=== PATIENT | female | born 1945 | race Caucasian/White ===

== ENCOUNTER 2016-06-18 09:59 | Inpatient (IN) | payer MEDICARE, OTHER ==
[2016-06-18] MEDS ORDERED: CALCIUM 600 +1 EA10 PO (10:54)
[2016-06-18] MEDS ORDERED: IRON325 M3 (10:55)
[2016-06-18] MEDS ORDERED: XANAX0.5 M1 PO (11:44)
[2016-06-18] MEDS ORDERED: METHSCOPOLAMIN2.5 M1 PO (11:44)
[2016-06-18] MEDS ORDERED: DEPAKOTE ER250 M1 PO (11:44)
[2016-06-18] MEDS ORDERED: GLUCOPHAGE850 M1 PO (11:45)
[2016-06-18] MEDS ORDERED: TOPROL XL50 M1 PO (11:45)
[2016-06-18] MEDS ORDERED: SYNTHROID125 MC1 PO (11:45)
[2016-06-18] MEDS ORDERED: ZOCOR20 M1 PO (11:45)
[2016-06-18] MEDS ORDERED: CYMBALTA20 M1 PO (11:46)
[2016-06-18] MEDS ORDERED: NORVASC5 M2 PO (11:46)
[2016-06-18] MEDS ORDERED: COZAAR100 M1 PO (11:46)
[2016-06-18] MEDS ORDERED: PEPCID20 M1 PO (11:47)
[2016-06-18 14:33] LABS: BASO % 0.1 % (0-2); HCT-HEMATOCRIT 36.9 % (34.0-49.0); HGB-HEMOGLOBIN 12.5 gm/dl (12.0-15.5); IMMATURE GRANULOCYTES ABSOLUTE 0.09 tho/cmm (0-0.03); IMMATURE GRANULOCYTES PERCENT 0.4 % (0-0.3); LYMPH % 5.2 % (20-45); LYMPH ABSOLUTE COUNT 1.1 tho/cmm (0.8-4.5); MCH (MEAN CORPUSCULAR HGB) 29.8 pg (28.0-32.0); MCHC MEAN CORPUSCULAR HGB CONC 33.9 % (32.0-36.0); MCV (MEAN CELL VOLUME) 87.9 fl (82.0-96.0); MEAN PLATELET VOLUME 10.1 cmc (9.4-12.4); MONO % 13.6 % (0-12); MONOCYTE ABSOLUTE COUNT 2.9 tho/cmm (0.0-1.2); NEUTROPHIL ABSOLUTE COUNT 17.3 tho/cmm (1.6-8.0); NEUTROPHIL-AUTOMATED 17.3 tho/cmm (1.6-8.0); NEUTROPHILS % 80.7 % (40-80); PLATELET COUNT 359 tho/cmm (150-450); WHITE BLOOD COUNT 21.4 tho/cmm (4.0-10.0)
[2016-06-18 15:26] LABS: PROCALCITONIN 24.53 ng/ml (0.05-0.09)
[2016-06-18 15:40] LABS: ALB/GLOB RATIO 0.5 (0.8-2.0); ALBUMIN 2.6 g/dl (3.5-5.0); ALKALINE PHOSPHATASE 155 U/L (33-138); ALT/SGPT 35 U/L (12-78); AMYLASE 12 U/L (20-90); ANION GAP 14 mmol/L (0-20); AST/SGOT 34 U/L (10-40); BILIRUBIN,TOTAL 1.1 mg/dl (0-1.5); BLOOD UREA NITROGEN 30 mg/dl (6-24); CALCIUM 9.1 mg/dl (8.5-10.5); CARBON DIOXIDE-VENOUS 28 mmol/L (22-32); CHLORIDE 97 mmol/l (96-110); CREATININE 2.72 mg/dl (0.50-1.10); GLUCOSE 133 mg/dL (70-110); LIPASE 45 U/L (73-393); POTASSIUM 4.3 mmol/L (3.7-5.1); SODIUM 135 mmol/L (135-145); eGFR VALUE FOR BLACK 20 mL/Min
[2016-06-18 15:44] LABS: TSH-THYROID STIMULATING HORM. 2.63 uIU/ml (0.40-3.80)
[2016-06-18 22:59] LABS: BASO % 0.1 % (0-2); HCT-HEMATOCRIT 31.6 % (34.0-49.0); HGB-HEMOGLOBIN 10.4 gm/dl (12.0-15.5); IMMATURE GRANULOCYTES ABSOLUTE 0.18 tho/cmm (0-0.03); LYMPH % 4.6 % (20-45); LYMPH ABSOLUTE COUNT 0.9 tho/cmm (0.8-4.5); MCH (MEAN CORPUSCULAR HGB) 29.4 pg (28.0-32.0); MCHC MEAN CORPUSCULAR HGB CONC 32.9 % (32.0-36.0); MCV (MEAN CELL VOLUME) 89.3 fl (82.0-96.0); MEAN PLATELET VOLUME 9.8 cmc (9.4-12.4); MONOCYTE ABSOLUTE COUNT 2.6 tho/cmm (0.0-1.2); NEUTROPHIL ABSOLUTE COUNT 15.2 tho/cmm (1.6-8.0); NEUTROPHIL-AUTOMATED 15.2 tho/cmm (1.6-8.0); NEUTROPHILS % 80.3 % (40-80); PLATELET COUNT 344 tho/cmm (150-450); RED BLOOD COUNT 3.54 mil/cmm (4.00-5.20); RED CELL DISTRIBUTION WIDTH 14.2 % (12.4-16.4); WHITE BLOOD COUNT 18.9 tho/cmm (4.0-10.0)
[2016-06-18 23:09] LABS: ANION GAP 15 mmol/L (0-20); BLOOD UREA NITROGEN 36 mg/dl (6-24); CALCIUM 8.4 mg/dl (8.5-10.5); CARBON DIOXIDE-VENOUS 25 mmol/L (22-32); CHLORIDE 99 mmol/l (96-110); CREATININE 3.13 mg/dl (0.50-1.10); GLUCOSE 185 mg/dL (70-110); MAGNESIUM 1.2 mg/dl (1.3-2.6); SODIUM 135 mmol/L (135-145); eGFR VALUE FOR BLACK 17 mL/Min
[2016-06-19 03:31] LABS: ABG CO2 ARTERIAL 21 mmol/L (21-27); ARTERIAL BLD GAS O2 SATURATION 90 % (95-98); ARTERIAL BLOOD GAS PCO2 28 mmHg (32-45); ARTERIAL PO2 57 mmHg (70-100); BICARBONATE 20 mmol/L (21-28); BLOOD GAS BASE EXCESS -3 mM/L (-/+3); PH 7.46 Units (7.35-7.45)
[2016-06-19 03:45] LABS: BASO % 0.1 % (0-2); HCT-HEMATOCRIT 30.7 % (34.0-49.0); HGB-HEMOGLOBIN 10.2 gm/dl (12.0-15.5); IMMATURE GRANULOCYTES ABSOLUTE 0.15 tho/cmm (0-0.03); IMMATURE GRANULOCYTES PERCENT 0.9 % (0-0.3); LYMPH % 5.6 % (20-45); LYMPH ABSOLUTE COUNT 0.9 tho/cmm (0.8-4.5); MCH (MEAN CORPUSCULAR HGB) 29.3 pg (28.0-32.0); MCHC MEAN CORPUSCULAR HGB CONC 33.2 % (32.0-36.0); MCV (MEAN CELL VOLUME) 88.2 fl (82.0-96.0); MEAN PLATELET VOLUME 10.2 cmc (9.4-12.4); MONO % 11.7 % (0-12); MONOCYTE ABSOLUTE COUNT 1.9 tho/cmm (0.0-1.2); NEUTROPHIL ABSOLUTE COUNT 13.1 tho/cmm (1.6-8.0); NEUTROPHIL-AUTOMATED 13.1 tho/cmm (1.6-8.0); NEUTROPHILS % 81.7 % (40-80); PLATELET COUNT 325 tho/cmm (150-450); RED BLOOD COUNT 3.48 mil/cmm (4.00-5.20); RED CELL DISTRIBUTION WIDTH 14.2 % (12.4-16.4)
[2016-06-19 03:55] LABS: ANION GAP 16 mmol/L (0-20); BLOOD UREA NITROGEN 39 mg/dl (6-24); CALCIUM 7.8 mg/dl (8.5-10.5); CARBON DIOXIDE-VENOUS 22 mmol/L (22-32); CHLORIDE 101 mmol/l (96-110); GLUCOSE 186 mg/dL (70-110); MAGNESIUM 1.3 mg/dl (1.3-2.6); POTASSIUM 4.6 mmol/L (3.7-5.1); SODIUM 134 mmol/L (135-145); eGFR VALUE FOR BLACK 17 mL/Min
[2016-06-19 21:03] LABS: URINE BILIRUBIN NEGATIVE (NEG); URINE BLOOD MODERATE (NEG); URINE GLUCOSE (UA) NEGATIVE (NEG); URINE KETONE NEGATIVE (NEG); URINE LEUKOCYTE ESTERASE POSITIVE (NEG); URINE NITRITE NEGATIVE (NEG); URINE PROTEIN MODERATE (NEG)
[2016-06-19 21:18] LABS: URINE APPEARANCE HAZY; URINE COLOR YELLOW; URINE CREATININE-RANDOM 47 mg/dl (30-125); URINE SODIUM-RANDOM 26 mmol/L (20-110)
[2016-06-19 21:26] LABS: URINE AMORPHOUS 2+
[2016-06-19 21:27] LABS: URINE BACTERIA 1+
[2016-06-20 03:37] LABS: BASO % 0.2 % (0-2); EOS % 1.6 % (0-7); EOSINOPHIL ABSOLUTE COUNT 0.2 tho/cmm (0.0-0.7); HGB-HEMOGLOBIN 9.1 gm/dl (12.0-15.5); IMMATURE GRANULOCYTES ABSOLUTE 0.03 tho/cmm (0-0.03); IMMATURE GRANULOCYTES PERCENT 0.3 % (0-0.3); LYMPH % 7.3 % (20-45); LYMPH ABSOLUTE COUNT 0.8 tho/cmm (0.8-4.5); MCHC MEAN CORPUSCULAR HGB CONC 32.5 % (32.0-36.0); MCV (MEAN CELL VOLUME) 89.2 fl (82.0-96.0); MEAN PLATELET VOLUME 9.9 cmc (9.4-12.4); MONO % 12.8 % (0-12); MONOCYTE ABSOLUTE COUNT 1.3 tho/cmm (0.0-1.2); NEUTROPHILS % 77.8 % (40-80); PLATELET COUNT 312 tho/cmm (150-450); RED BLOOD COUNT 3.14 mil/cmm (4.00-5.20); RED CELL DISTRIBUTION WIDTH 14.7 % (12.4-16.4); WHITE BLOOD COUNT 10.3 tho/cmm (4.0-10.0)
[2016-06-20 03:51] LABS: ALB/GLOB RATIO 0.4 (0.8-2.0); ALBUMIN 1.8 g/dl (3.5-5.0); ALKALINE PHOSPHATASE 185 U/L (33-138); BILIRUBIN,TOTAL 0.8 mg/dl (0-1.5); BLOOD UREA NITROGEN 27 mg/dl (6-24); CALCIUM 7.4 mg/dl (8.5-10.5); CARBON DIOXIDE-VENOUS 28 mmol/L (22-32); CHLORIDE 108 mmol/l (96-110); CREATININE 2.37 mg/dl (0.50-1.10); GLUCOSE 96 mg/dL (70-110); MAGNESIUM 1.5 mg/dl (1.3-2.6); PHOSPHOROUS 3.7 mg/dl (2.5-4.9); SODIUM 144 mmol/L (135-145); eGFR VALUE FOR BLACK 23 mL/Min
[2016-06-20 03:52] LABS: ALT/SGPT 72 U/L (12-78); ANION GAP 12 mmol/L (0-20); AST/SGOT 74 U/L (10-40); POTASSIUM 3.7 mmol/L (3.7-5.1)
[2016-06-20 04:36] LABS: ARTERIAL BLD GAS O2 SATURATION 96 % (95-98); BLOOD GAS BASE EXCESS 1 mM/L (-/+3)
[2016-06-20 04:38] LABS: ABG CO2 ARTERIAL 28 mmol/L (21-27); ARTERIAL BLOOD GAS PCO2 49 mmHg (32-45); ARTERIAL PO2 85 mmHg (70-100); BICARBONATE 26 mmol/L (21-28); PH 7.35 Units (7.35-7.45)
[2016-06-21 05:45] LABS: BASO % 0.5 % (0-2); BASO ABSOLUTE COUNT 0.1 tho/cmm (0.0-0.2); EOS % 2.3 % (0-7); EOSINOPHIL ABSOLUTE COUNT 0.3 tho/cmm (0.0-0.7); IMMATURE GRANULOCYTES ABSOLUTE 0.09 tho/cmm (0-0.03); IMMATURE GRANULOCYTES PERCENT 0.8 % (0-0.3); LYMPH % 12.2 % (20-45); LYMPH ABSOLUTE COUNT 1.4 tho/cmm (0.8-4.5); MCH (MEAN CORPUSCULAR HGB) 28.9 pg (28.0-32.0); MCHC MEAN CORPUSCULAR HGB CONC 31.3 % (32.0-36.0); MCV (MEAN CELL VOLUME) 92.5 fl (82.0-96.0); MEAN PLATELET VOLUME 9.7 cmc (9.4-12.4); MONO % 14.8 % (0-12); MONOCYTE ABSOLUTE COUNT 1.6 tho/cmm (0.0-1.2); NEUTROPHIL ABSOLUTE COUNT 7.7 tho/cmm (1.6-8.0); NEUTROPHIL-AUTOMATED 7.7 tho/cmm (1.6-8.0); NEUTROPHILS % 69.4 % (40-80); PLATELET COUNT 381 tho/cmm (150-450); RED BLOOD COUNT 3.46 mil/cmm (4.00-5.20); RED CELL DISTRIBUTION WIDTH 15.2 % (12.4-16.4); WHITE BLOOD COUNT 11.1 tho/cmm (4.0-10.0)
[2016-06-21 06:14] LABS: CALCIUM 7.9 mg/dl (8.5-10.5); CHLORIDE 110 mmol/l (96-110); POTASSIUM 3.9 mmol/L (3.7-5.1); SODIUM 146 mmol/L (135-145)
[2016-06-21 06:18] LABS: ALBUMIN 2.1 g/dl (3.5-5.0); ANION GAP 11 mmol/L (0-20); BLOOD UREA NITROGEN 18 mg/dl (6-24); CARBON DIOXIDE-VENOUS 29 mmol/L (22-32); GLUCOSE 119 mg/dL (70-110); MAGNESIUM 1.8 mg/dl (1.3-2.6); PHOSPHOROUS 3.4 mg/dl (2.5-4.9); eGFR VALUE FOR BLACK 36 mL/Min
[2016-06-21 06:20] LABS: CREATININE 1.63 mg/dl (0.50-1.10)
[2016-06-21 07:58] LABS: ABG CO2 ARTERIAL 30 mmol/L (21-27); ARTERIAL BLD GAS O2 SATURATION 91 % (95-98); BICARBONATE 28 mmol/L (21-28); BLOOD GAS BASE EXCESS 0 mM/L (-/+3)
[2016-06-21 07:59] LABS: ARTERIAL BLOOD GAS PCO2 65 mmHg (32-45); ARTERIAL PO2 68 mmHg (70-100); PH 7.26 Units (7.35-7.45)
[2016-06-21 09:47] LABS: ABG CO2 ARTERIAL 29 mmol/L (21-27); ARTERIAL BLD GAS O2 SATURATION 94 % (95-98); ARTERIAL BLOOD GAS PCO2 56 mmHg (32-45); ARTERIAL PO2 74 mmHg (70-100); BICARBONATE 28 mmol/L (21-28); BLOOD GAS BASE EXCESS 1 mM/L (-/+3); PH 7.32 Units (7.35-7.45)
[2016-06-21 11:43] LABS: PROCALCITONIN 3.57 ng/ml (0.05-0.09)
[2016-06-22 03:56] LABS: BASO % 0.2 % (0-2); EOS % 0.2 % (0-7); HCT-HEMATOCRIT 30.6 % (34.0-49.0); HGB-HEMOGLOBIN 9.5 gm/dl (12.0-15.5); IMMATURE GRANULOCYTES ABSOLUTE 0.21 tho/cmm (0-0.03); IMMATURE GRANULOCYTES PERCENT 2.4 % (0-0.3); LYMPH % 11.5 % (20-45); MCH (MEAN CORPUSCULAR HGB) 28.5 pg (28.0-32.0); MCV (MEAN CELL VOLUME) 91.9 fl (82.0-96.0); MEAN PLATELET VOLUME 9.9 cmc (9.4-12.4); MONO % 14.1 % (0-12); MONOCYTE ABSOLUTE COUNT 1.2 tho/cmm (0.0-1.2); NEUTROPHIL ABSOLUTE COUNT 6.1 tho/cmm (1.6-8.0); NEUTROPHIL-AUTOMATED 6.1 tho/cmm (1.6-8.0); NEUTROPHILS % 71.6 % (40-80); PLATELET COUNT 354 tho/cmm (150-450); RED BLOOD COUNT 3.33 mil/cmm (4.00-5.20); WHITE BLOOD COUNT 8.6 tho/cmm (4.0-10.0)
[2016-06-22 03:59] LABS: ALB/GLOB RATIO 0.5 (0.8-2.0); ALBUMIN 2.1 g/dl (3.5-5.0); ALKALINE PHOSPHATASE 213 U/L (33-138); ALT/SGPT 49 U/L (12-78); ANION GAP 11 mmol/L (0-20); AST/SGOT 44 U/L (10-40); BILIRUBIN,TOTAL 0.4 mg/dl (0-1.5); BLOOD UREA NITROGEN 22 mg/dl (6-24); CALCIUM 7.8 mg/dl (8.5-10.5); CARBON DIOXIDE-VENOUS 33 mmol/L (22-32); CHLORIDE 104 mmol/l (96-110); GLUCOSE 116 mg/dL (70-110); MAGNESIUM 1.4 mg/dl (1.3-2.6); PHOSPHOROUS 2.8 mg/dl (2.5-4.9); POTASSIUM 3.9 mmol/L (3.7-5.1); SODIUM 144 mmol/L (135-145); eGFR VALUE FOR BLACK 44 mL/Min
[2016-06-22 12:37] LABS: ARTERIAL BLD GAS O2 SATURATION 97 % (95-98); ARTERIAL BLOOD GAS PCO2 60 mmHg (32-45); BLOOD GAS BASE EXCESS 7 mM/L (-/+3); PH 7.36 Units (7.35-7.45)
[2016-06-22 12:38] LABS: ABG CO2 ARTERIAL 35 mmol/L (21-27); ARTERIAL PO2 98 mmHg (70-100); BICARBONATE 33 mmol/L (21-28)
[2016-06-23 10:51] LABS: BASO % 0.6 % (0-2); BASO ABSOLUTE COUNT 0.1 tho/cmm (0.0-0.2); EOS % 0.5 % (0-7); EOSINOPHIL ABSOLUTE COUNT 0.1 tho/cmm (0.0-0.7); HCT-HEMATOCRIT 34.3 % (34.0-49.0); HGB-HEMOGLOBIN 10.7 gm/dl (12.0-15.5); IMMATURE GRANULOCYTES PERCENT 3.6 % (0-0.3); LYMPH % 8.9 % (20-45); MCH (MEAN CORPUSCULAR HGB) 29.2 pg (28.0-32.0); MCHC MEAN CORPUSCULAR HGB CONC 31.2 % (32.0-36.0); MCV (MEAN CELL VOLUME) 93.7 fl (82.0-96.0); MEAN PLATELET VOLUME 9.2 cmc (9.4-12.4); MONO % 13.3 % (0-12); MONOCYTE ABSOLUTE COUNT 1.5 tho/cmm (0.0-1.2); NEUTROPHIL ABSOLUTE COUNT 8.1 tho/cmm (1.6-8.0); NEUTROPHIL-AUTOMATED 8.1 tho/cmm (1.6-8.0); NEUTROPHILS % 73.1 % (40-80); PLATELET COUNT 393 tho/cmm (150-450); RED BLOOD COUNT 3.66 mil/cmm (4.00-5.20); RED CELL DISTRIBUTION WIDTH 14.6 % (12.4-16.4); WHITE BLOOD COUNT 11.1 tho/cmm (4.0-10.0)
[2016-06-23 11:01] LABS: ANION GAP 11 mmol/L (0-20); BLOOD UREA NITROGEN 27 mg/dl (6-24); CARBON DIOXIDE-VENOUS 33 mmol/L (22-32); CHLORIDE 101 mmol/l (96-110); CREATININE 1.24 mg/dl (0.50-1.10); GLUCOSE 154 mg/dL (70-110); POTASSIUM 4.2 mmol/L (3.7-5.1); SODIUM 141 mmol/L (135-145); eGFR VALUE FOR BLACK 51 mL/Min
[2016-06-23 11:04] LABS: ABG CO2 ARTERIAL 31 mmol/L (21-27); ARTERIAL BLD GAS O2 SATURATION 97 % (95-98); ARTERIAL BLOOD GAS PCO2 69 mmHg (32-45); ARTERIAL PO2 102 mmHg (70-100); BICARBONATE 29 mmol/L (21-28); BLOOD GAS BASE EXCESS 1 mM/L (-/+3)
[2016-06-23 11:06] LABS: PH 7.25 Units (7.35-7.45)
[2016-06-23 12:34] LABS: ABG CO2 ARTERIAL 33 mmol/L (21-27); ARTERIAL BLD GAS O2 SATURATION 96 % (95-98); BICARBONATE 31 mmol/L (21-28); BLOOD GAS BASE EXCESS 3 mM/L (-/+3); PH 7.26 Units (7.35-7.45)
[2016-06-23 12:38] LABS: ARTERIAL PO2 88 mmHg (70-100)
[2016-06-23 12:40] LABS: ARTERIAL BLOOD GAS PCO2 71 mmHg (32-45)
[2016-06-23 14:44] LABS: INR 1.1 INR (0.9-1.1); PROTHROMBIN TIME 12.9 SECONDS (9.0-13.6)
== END 2016-06-24 04:30 | disposition expired | DRG 853 ==
LOC: CAR1 09:59 → CCU 22:07
PROVIDERS: Colon & Rectal Surgery; Internal Medicine Critical Care Medicine; Internal Medicine Nephrology; Internal Medicine Pulmonary Disease; ADMIT Family Medicine
PROC: 0FT44ZZ Resection of Gallbladder, Percutaneous Endoscopic Approach (ICD-10-PCS; principal; 2016-06-18)
DX: A41.9 Sepsis, unspecified organism (principal); J95.821 Acute postprocedural respiratory failure; N17.0 Acute kidney failure with tubular necrosis; K80.00 Calculus of gallbladder with acute cholecystitis without obstruction; Z68.42 Body mass index [BMI] 45.0-49.9, adult; E03.9 Hypothyroidism, unspecified; E11.9 Type 2 diabetes mellitus without complications; E55.9 Vitamin D deficiency, unspecified; F31.9 Bipolar disorder, unspecified; G47.00 Insomnia, unspecified; G47.33 Obstructive sleep apnea (adult) (pediatric); I10 Essential (primary) hypertension; I70.0 Atherosclerosis of aorta; J30.9 Allergic rhinitis, unspecified; J44.9 Chronic obstructive pulmonary disease, unspecified; K21.9 Gastro-esophageal reflux disease without esophagitis
CPT/HCPCS: C1751; C9113; J0131; J1644; J1650; J1815; J1940; J1956; J2060; J2270; J2704; J2930; J7030; J7040; J7121